=== PATIENT | female | born 1995 | race Asian ===

== ENCOUNTER 2017-03-01 23:53 | Emergency (ER) | payer OTHER ==
[2017-03-02] MEDS ORDERED: OXYMETAZOLINE 30 ML NASAL SPRAY ONE (00:30)
--- NOTE | 2017-03-02 00:48 | EDPHY ---
H & P Stated Complaint: JEFFRIES x3 days Time Seen by Provider: 03/02/17 00:16 HPI/ROS: Chief Complaint: Headache HPI: 21-year-old female presenting with 3 days of primarily right-sided but by facial headache. Patient states she had a cold about a week ago which got better. The headache was gradual in onset. She has also had some fullness in her right ear some nasal congestion. No sore throat. Some occasional cough. No fevers or chills. No nausea or vomiting. Patient states that is much worse when she leans forward. Bright light is not particularly bothersome. She has not had any rashes. No falls or traumas. ROS: 10 point Review of Systems is negative except as noted in the HPI. PMH: None Social History: No smoking, no alcohol, no recreational drug use Family History: non-contributory Physical Exam: Gen: Awake, Alert, No Distress HEENT: Face: She has got tenderness over her right frontal sinus with mild tenderness over her right maxillary sinus. No tenderness over the left side. Ears: Normal Nose: no rhinorrhea Eyes: PERRLA, EOMI Mouth: Moist mucosa Neck: Supple, no JVD Chest: nontender, lungs clear to auscultation Heart: S1, S2 normal, no murmur Abd: Soft, non-tender, no guarding Back: no CVA tenderness, no midline tenderness Ext: no edema, non-tender Skin: no rash Neuro: CN II-XII intact, Sensation grossly intact, Strength 5/5 in bilateral upper and lower extremities - Personal History LMP (Females 10-55): 8-14 Days Ago Current Tetanus/Diphtheria Vaccine: Yes - Medical/Surgical History Hx Asthma: No Hx Chronic Respiratory Disease: No Hx Diabetes: No Hx Cardiac Disease: No Hx Renal Disease: No Hx Cirrhosis: No Hx Alcoholism: No Hx HIV/AIDS: No Hx Splenectomy or Spleen Trauma: No Other PMH: seasonal allergies when in [place] - Social History Smoking Status: Never smoked Constitutional: Initial Vital Signs Temperature (C) 36.4 C 03/01/17 23:54 Heart Rate 98 03/01/17 23:54 Respiratory Rate 18 03/01/17 23:54 Blood Pressure 127/85 H 03/01/17 23:54 O2 Sat (%) 98 03/01/17 23:54 O2 Delivery Mode Room Air Allergies/Adverse Reactions: No Known Allergies Allergy (Verified 03/01/17 23:58) Home Medications: Medication Instructions Recorded NK [No Known Home Meds] 09/25/15 Medical Decision Making ED Course/Re-evaluation: 21-year-old with symptoms consistent with a sinusitis. She had a cold last week. She has tenderness to percussion over the right frontal sinus. Symptoms are worse with stooping forward. Given the short duration of symptoms I do not think antibiotics are indicated. Will start her on Afrin nasal spray twice a day for 3 days, ibuprofen for anti-inflammatory. She also take over-the- counter cough and cold medications which will include phenylephrine. Follow up with [facility] in 2 days. Departure - Departure Disposition: Home, Routine, Self-Care Clinical Impression: Sinusitis Condition: Good Instructions: Sinusitis (ED) Additional Instructions: You may use the David-Synephrine nasal spray twice a day for 3 days, then throw it away. Use hoff-xax-pmxhoqe cough and cold medications that contain phenylephrine as a decongestant. Alternate acetaminophen (1000 mg) with ibuprofen (400 mg) every 4 hours as needed for fevers, chills, aches or pains. Do not take acetaminophen if the cold medication you're taking contains the same medication. Follow up at [facility] in 2 days if symptoms are not improving. Referrals: ANIVAL Guzman,. [Clinic] - As per Instructions
[2017-03-02 01:10] VITALS: BP 128/82; PULSE 93; RESP 16; TEMP 97.7; O2SAT 95
== END 2017-03-02 01:10 | disposition home or self-care (01) ==
DX: J32.9 Chronic sinusitis, unspecified (principal)

== ENCOUNTER 2017-06-10 03:24 | Emergency (ER) | payer OTHER ==
[2017-06-10 03:37] VITALS: RESP 16
--- NOTE | 2017-06-10 03:51 | CPEKG ---
Heart Rate: 91 RR Interval: 659 P-R Interval: 144 QRSD Interval: 86 QT Interval: 356 QTC Interval: 439 P Parker: 73 QRS Parker: 51 T Wave Parker: 47 EKG Severity - NORMAL ECG - EKG Impression: SINUS RHYTHM Electronically Signed By: Haylie Norris 10-Jun-2017 07:17:36
[2017-06-10] MEDS ORDERED: IBUPROFEN 200 MG TAB PO ONE (04:25)
--- NOTE | 2017-06-10 04:25 | EDPHY ---
H & P Stated Complaint: CP and sob-[place] to breath Time Seen by Provider: 06/10/17 04:00 HPI/ROS: HPI The patient presents with chest pain which has been present since about 1:40 a.m. This morning. The pain is described as a stabbing pain, worse with deep inspiration and moderate in severity. Since she has arrived in the emergency department about 30 min ago the pain has completely subsided. It was associated with shortness of breath and occurred while at rest. It did not wake her from sleep. She has no cough, rhinorrhea, sore throat, fever. She has no leg swelling, OCP use, recent travel. She has no prior history of similar. She has not been sick recently. She has no nausea, vomiting, dizziness, diaphoresis.. REVIEW OF SYSTEMS Constitutional: No fever, no chills. Eyes: No discharge. ENT: No sore throat. Cardiovascular: Positive for chest pain, no palpitations. Respiratory: No cough, positive for shortness of breath. Gastrointestinal: No abdominal pain, no vomiting. Genitourinary: No hematuria. Musculoskeletal: No back pain. Skin: No rashes. Neurological: No headache. PMHx: Healthy Soc Hx: college student PHYSICAL General Appearance: Alert, no distress Eyes: Pupils equal and round no pallor or injection ENT, Mouth: Mucous membranes moist Respiratory: There are no retractions, lungs are clear to auscultation Cardiovascular: Regular rate and rhythm Gastrointestinal: Abdomen is soft and non-tender, no masses, bowel sounds normal Neurological: A&O, moves all extremities Skin: Warm and dry, no rashes Musculoskeletal: Neck is supple non tender Extremities: symmetrical, full range of motion Psychiatric: Patient is oriented X 3, there is no agitation Source: Patient Exam Limitations: No limitations - Personal History LMP (Females 10-55): 22-28 Days Ago Current Tetanus Diphtheria and Acellular Pertussis (TDAP): Yes - Medical/Surgical History Hx Asthma: No Hx Chronic Respiratory Disease: No Hx Diabetes: No Hx Cardiac Disease: No Hx Renal Disease: No Hx Cirrhosis: No Hx Alcoholism: No Hx HIV/AIDS: No Hx Splenectomy or Spleen Trauma: No Other PMH: seasonal allergies when in [place] - Social History Smoking Status: Never smoked Constitutional: Initial Vital Signs Temperature (C) 36.9 C 06/10/17 03:33 Heart Rate 93 06/10/17 03:33 Respiratory Rate 16 06/10/17 03:33 Blood Pressure 132/94 H 06/10/17 03:33 O2 Sat (%) 100 06/10/17 03:33 O2 Delivery Mode Room Air Allergies/Adverse Reactions: No Known Allergies Allergy (Verified 06/10/17 03:33) Home Medications: Medication Instructions Recorded NK [No Known Home Meds] 09/25/15 Medical Decision Making - Diagnostics EKG Interpretation: EKG: Complete interpretation has been separately recorded in the [facility] archive. Summary impression: Normal sinus rhythm Imaging Results: Chest x-ray two view shows no cardiomegaly, no pleural effusion, no pneumothorax. Interpreted by me, radiology interpretation is pending. Differential Diagnosis: This is a 22-year-old college student who is healthy who presents with several hours of chest pain with shortness of breath which is now completely resolved. Pain was pleuritic and sharp in nature. This raises suspicion for costochondritis. I have considered pulmonary embolism, however she is perc negative. EKG was checked and demonstrated no sign of pericarditis. Chest x- ray showed no effusion, pneumonia, pneumothorax. I have explained to her that I think her symptoms are related to costochondritis and she should take ibuprofen as needed if her pain returns. She is in agreement this plan. - Data Points Medications Given: Discontinued Medications Ibuprofen (Motrin) 400 mg PO EDNOW ONE Stop: 06/10/17 04:26 Last Admin: 06/10/17 05:03 Dose: 400 mg Departure - Departure Disposition: Home, Routine, Self-Care Clinical Impression: Chest pain Qualifiers: Chest pain type: unspecified Qualified Code(s): R07.9 - Chest pain, unspecified Condition: Good Instructions: Pleurisy (ED) Additional Instructions: I recommend you take ibuprofen 400 mg every 6 hr as needed for pain. [facility] if your pain continues or if your worse in any way. Referrals: ANIVAL Guzman,. [Clinic] - As per Instructions
[2017-06-10 05:11] VITALS: BP 101/69; PULSE 79; TEMP 98.1; O2SAT 97
== END 2017-06-10 05:10 | disposition home or self-care (01) ==
DX: R07.9 Chest pain, unspecified (principal)

== ENCOUNTER 2017-07-05 12:43 | Emergency (ER) | payer OTHER ==
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
[2017-07-05] MEDS ORDERED: ACETAMINOPHEN 325 MG TAB PO ONE (13:16)
[2017-07-05 14:01] VITALS: BP 123/80
== END 2017-07-05 14:00 | disposition home or self-care (01) ==
DX: S80.12XA Contusion of left lower leg, initial encounter (principal); V49.50XA Passenger injured in collision with unspecified motor vehicles in traffic accident, initial encounter; Y92.410 Unspecified street and highway as the place of occurrence of the external cause